=== PATIENT | male | born 1965 ===

== ENCOUNTER → 2021-12-17 | Day surgery (SDC) | payer OTHER, SELFPAY ==
[~2021-12-17] VITALS: Ht 182.9 cm; Wt 114.8 kg
[~2021-12-17] MED LIST: ASCORBIC ACID500 MG PO; CRESTOR5 MG PO; FISH OIL 1,0001 EACH PO; GLUCOSAMINE1000 MG PO; METFORMIN HCL500 MG PO; ZESTRIL5 MG PO
[2021-12-17 11:28] LABS: HGB 15.7 g/dl (13.2-18.0); MCH 31.2 pg (25.0-31.0); MCHC 34.9 g/dL (32.0-36.0); MCV 89.5 fL (78.0-100.0); MPV 9.7 fL (6.0-9.5); RBC 5.03 M/uL (4.70-6.00); RDW 12.5 % (11.5-14.0); WBC 5.8 K/uL (4.0-10.5)
[2021-12-17 11:45] LABS: ALBUMIN 4.1 g/dL (3.4-5.0); BUN/CREAT RATIO (CALC) 12.6 RATIO; CREATININE 0.95 mg/dL (0.67-1.17); GLOBULIN (CALCULATION) 3.6 g/dL; POTASSIUM 3.9 mmol/L (3.5-5.1); TOTAL PROTEIN 7.7 g/dL (6.4-8.2)
== END | disposition home or self-care (01) ==
LOC: FAS 09:45
PROVIDERS: Surgery
DX: Z12.11 Encounter for screening for malignant neoplasm of colon (principal); K58.9 Irritable bowel syndrome, unspecified; E11.9 Type 2 diabetes mellitus without complications; E78.5 Hyperlipidemia, unspecified; Z85.038 Personal history of other malignant neoplasm of large intestine; Z86.010 Personal history of colon polyps; Z80.0 Family history of malignant neoplasm of digestive organs
CPT/HCPCS: 36415; 80053; J1610; J2704; J7120